=== PATIENT | female | born 1970 | race Caucasian/White ===

== ENCOUNTER 2017-12-06 16:22 | Emergency (ER) | payer OTHER ==
[~2017-12-06] VITALS: Ht 162.6 cm; Wt 86.4 kg
[~2017-12-06 16:22] MED LIST: NOHOMEMEDS
[2017-12-06 17:41] LABS: HEMATOCRIT 43.4 % (36.0-46.0); HEMOGLOBIN 15.4 G/DL (11.9-15.5); MCH 34.5 PG (29.0-34.0); MCHC 35.5 G/DL (30.0-36.0); MCV 97.3 FL (83-99); PLATELET COUNT 222 K/uL (156-360); RBC DIS.WIDTH-SD 43.3 % (39-53); RED BLOOD COUNT 4.46 M/uL (3.80-5.20); WHITE BLOOD COUNT 9.7 K/uL (4.1-10.2)
[2017-12-06 17:50] LABS: ALBUMIN 4.3 g/dL (3.2-4.8); CHLORIDE 104 mEq/L (99-109); POTASSIUM 4.1 mEq/L (3.7-5.4); SODIUM 138 mEq/L (136-147)
[2017-12-06 17:52] LABS: GLUCOSE 97 mg/dL (70-99); TOTAL PROTEIN 7.6 g/dL (6.4-8.3)
[2017-12-06 17:54] LABS: TOTAL BILIRUBIN 0.4 mg/dL (0.0-1.0)
[2017-12-06 17:56] LABS: ALKALINE PHOSPHATASE 105 IU/L (3-129); CREATININE 0.7 mg/dL (0.6-1.3); GFR ESTIMATE (CALCULATED) > 59 mL/min/
[2017-12-06 17:57] LABS: UREA NITROGEN (BUN) 9 mg/dL (9-23)
[2017-12-06 17:58] LABS: AST (GOT) 15 IU/L (2-34)
[2017-12-06 17:59] LABS: ALT (GPT) 20 IU/L (3-49)
[2017-12-06] MEDS ORDERED: FLEXERIL10 MG PO (18:24)
[2017-12-06] MEDS ORDERED: MOBIC7.5 MG PO (18:24)
[2017-12-06 18:34] VITALS: BP 151/87
== END 2017-12-06 18:39 | disposition home or self-care (01) ==
LOC: EME 16:22
PROVIDERS: Physician Assistant
DX: M17.12 Unilateral primary osteoarthritis, left knee (principal); M79.605 Pain in left leg; M79.662 Pain in left lower leg; G35 Multiple sclerosis
CPT/HCPCS: 73564; 80053; 85027; 85610; 85730; 93971; 99281; 99284